=== PATIENT | female | born 1955 | race Caucasian/White ===

== ENCOUNTER 2017-05-03 06:13 | Day surgery (SDC) | payer MEDICARE, BC ==
[2017-05-03] MEDS ORDERED: Dextrose 5%-Lactated Ringers 1,000 ML IV SCH (07:00)
[2017-05-03] MEDS ORDERED: fentaNYL 100 MCG/2 ML SDV ONE (07:50)
[2017-05-03] MEDS ORDERED: Midazolam 1 MG/ML 2 ML SDV ONE (07:50)
[2017-05-03] MEDS ORDERED: Propofol 200 MG/20 ML SDV ONE (07:50)
[2017-05-03] MEDS ORDERED: Glycopyrrolate 0.2 MG/ML 2 ML SDV IVPUSH ONE (08:15)
--- NOTE | 2017-05-11 17:28 | OR ---
DATE OF PROCEDURE: 05/03/2017 PREOPERATIVE DIAGNOSIS: Presently worsening gastroesophageal reflux disease. POSTOPERATIVE DIAGNOSES: 1. 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 2. Mild antral gastritis. OPERATIVE PROCEDURE: Esophagogastroduodenoscopy with: 1. Biopsies of esophagogastric junction for histologic evaluation. 2. Biopsies of antrum for CLOtest. ANESTHESIA: IV sedation. INDICATIONS: A 62-year-old presenting with worsening of reflux symptoms despite ongoing medical management. After preoperative evaluation and discussion, she wished to proceed with upper GI endoscopy with biopsies as indicated. Potential risks including bleeding and perforation were discussed, and the patient wishes to proceed. DESCRIPTION OF PROCEDURE: The patient was taken to the operating room and placed in a left lateral decubitus position. IV sedation was administered, after which the upper GI endoscope was passed orally through the length of esophagus, into the stomach with retroflexion view of the fundus, and thereafter through the pyloric channel into the proximal duodenum. Findings included normal hypopharynx, larynx, upper esophageal sphincter, esophageal body. At the EG junction, the patient was noted to have a small hiatal hernia, but essentially wide open esophagogastric junction as viewed from the distal esophagus looking into the stomach. This was associated with quite active gastroesophageal reflux disease with the area being grossly edematous, friable, and some short linear ulcers x2 identified at the EG junction. 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 There was no packing, stricture, or other signs of neoplasia. Within the stomach, there was some mild redness in the antrum and otherwise pyloric channel and duodenum to the junction of third and fourth portions were unremarkable. At this point, biopsy was obtained from the antrum and sent for CLOtest for H. pylori. Multiple biopsies were obtained from the esophagogastric junction and sent for histologic evaluation. No bleeding from the biopsy sites was seen and the procedure concluded. The patient was taken to the recovery room in satisfactory condition. The situation was discussed at length with the patient's postoperatively. She would like to proceed with an antireflux procedure. At this point, we initially scheduled for later this week, but she had some complex . This will be scheduled for sometime probably in the next 2 weeks or so. The potential risks of fundoplication and side effects were gone over. She does not have any evidence of dysphagia and I do not think the diagnosis is in question based on the endoscopic findings. Given this, we would not need to proceed with either by manometry or pH testing, but it would be reasonable to proceed directly with the fundoplication. She will be called when she wishes to have this scheduled. Dez Lino MD /[id number]
== END 2017-05-03 10:30 | disposition home or self-care (01) ==
LOC: JP.SDS 06:13
PROVIDERS: ATTEND Surgery
DX: K29.50 Unspecified chronic gastritis without bleeding (principal); K21.0 Gastro-esophageal reflux disease with esophagitis; K44.9 Diaphragmatic hernia without obstruction or gangrene; Z88.1 Allergy status to other antibiotic agents; Z88.2 Allergy status to sulfonamides
CPT/HCPCS: 36415; 43239; 80053; 83735; 83880; 84100; 85027; 87081; 88305; J2250; J2704; J3010; J7042; J3490

== ENCOUNTER 2021-10-20 22:09 | Emergency (ER) | payer BC, MEDICARE ==
[2021-10-20] MEDS ORDERED: Sodium Chloride 0.9% 10 ML Syringe FLUSH PRN (22:50)
[2021-10-20] MEDS ORDERED: HYDROmorphone 0.5 MG/0.5 ML Syringe IVPUSH ONE ×2 (22:52→23:27)
[2021-10-20 23:31] LABS: ESTIMATED GFR 63 mL/min (>60)
[2021-10-20] MEDS ORDERED: Sodium Chloride 0.9% 1,000 ML IV ONE (23:49)
[2021-10-20] MEDS ORDERED: Ketorolac 30 MG/ML SDV IVPUSH ONE (23:50)
[2021-10-21] MEDS ORDERED: Ondansetron 4 MG/2 ML SDV IVPUSH ONE (01:07)
[2021-10-21 01:20] VITALS: BP 124/53; PULSE 87
== END 2021-10-21 01:37 | disposition home or self-care (01) ==
LOC: JP.ED 22:09
DX: N20.1 Calculus of ureter (principal); J45.909 Unspecified asthma, uncomplicated; E66.9 Obesity, unspecified; Z68.39 Body mass index [BMI] 39.0-39.9, adult; Z88.1 Allergy status to other antibiotic agents; Z88.8 Allergy status to other drugs, medicaments and biological substances; Z88.2 Allergy status to sulfonamides; Z79.899 Other long term (current) drug therapy; Z86.16 Personal history of COVID-19; Z90.710 Acquired absence of both cervix and uterus
CPT/HCPCS: 36415; 71046; 74176; 80053; 81001; 84145; 85025; 86140; 93005; 96361; 96374; 96375; 99284; J1170; J1885; J2405; J3490; J7030